=== PATIENT | male | born 1965 | race Caucasian/White ===

== ENCOUNTER 2021-07-13 11:40 | Emergency (ER) | payer OTHER ==
[2021-07-13 12:02] VITALS: BP 177/96; PULSE 75; TEMP 98.6; BMI 35.2
[2021-07-13] MEDS ORDERED: COLCHICINE 0.6 MG TAB PO ONE (12:09)
[2021-07-13] MEDS ORDERED: INDOMETHACIN 50 MG CAPSULE PO ONE (12:09)
[2021-07-13] MEDS ORDERED: predniSONE 20 MG TABLET (UD) ONE (12:12)
[2021-07-13] MEDS ORDERED: COLCHICINE 0.6 MG CAPSULE ONE (12:13)
[2021-07-13] MEDS ORDERED: INDOMETHACIN 25 MG CAPSULE ONE (12:13)
[2021-07-13] MEDS ORDERED: predniSONE 10 MG TABLET (UD) ONE (12:13)
[2021-07-13] MEDS ORDERED: predniSONE 20 MG TABLET (UD) PO ONE ×2 (12:59→13:05)
[2021-07-14] MEDS ORDERED: predniSONE 20 MG TABLET (UD) PO ONE (12:10)
== END 2021-07-13 13:07 | disposition home or self-care (01) ==
LOC: FER 11:40
DX: M79.671 Pain in right foot (principal); M10.9 Gout, unspecified
CPT/HCPCS: 73630-TC-RT-FY; 99284-25

== ENCOUNTER 2022-06-15 14:37 | Emergency (ER) | payer OTHER ==
[2022-06-15 14:42] VITALS: BP 164/77; PULSE 83; RESP 18; TEMP 98; BMI 36.6
[2022-06-15] MEDS ORDERED: CLINDAMYCIN HCL 150 MG CAPSULE (FP) PO ONE (15:39)
[2022-06-15] MEDS ORDERED: CLINDAMYCIN HCL 150 MG CAPSULE (FP) ONE (16:00)
== END 2022-06-15 16:51 | disposition home or self-care (01) ==
LOC: FER 14:37
DX: L03.032 Cellulitis of left toe (principal)
CPT/HCPCS: 99283-25

== ENCOUNTER 2022-06-18 11:09 | Inpatient (IN) | payer OTHER ==
[2022-06-18] MEDS ORDERED: CEFEPIME HCL/D5W 1 GM/50 ML BAG IVPB ONE (11:41)
[2022-06-18] MEDS ORDERED: VANCOMYCIN 1,000 MG in DEXTROSE 5%-WATER - 250 ML IVPB ONE (11:41)
[2022-06-18] MEDS ORDERED: VANCOMYCIN 1,000 MG VIAL (RESTRICTED TO ID ONLY) ONE ×2 (12:42→12:43)
[2022-06-18 13:26] LABS: ALBUMIN 4.1 g/dl (3.4-5.0); CALCIUM 9.7 mg/dl (8.5-10); CREATININE 0.7 mg/dl (0.55-1.3); TOT PROT 7.7 g/dl (6.4-8.2)
[2022-06-18 13:35] LABS: HEMATOCRIT 43.3 % (35.4-49); HEMOGLOBIN 14.7 G/dL (11.7-16.9); MCH 31.3 pg (25.7-33.7); MCHC 33.9 g/dl (32.0-35.9); MEAN CELL VOLUME 92.6 fl (80-96); MEAN PLT VOLUME 7.3 fl (7.5-11.1); PLATELET COUNT 247.3 10^3/uL (134-434); RBC 4.68 10^6/uL (4.00-5.60); WHITE BLOOD COUNT 11.1 10^3/uL (4.0-10.8)
[2022-06-18 14:24] LABS: ERYTHROCYTE SEDIMENTATION RATE 60 mm/hr (0-20)
[2022-06-18 15:08] LABS: PLATELET ESTIMATE ADEQUATE
[2022-06-18 16:11] VITALS: BMI 37.5
[2022-06-18 18:52] LABS: URIC ACID 4.9 mg/dL (2.6-7.2)
[2022-06-19] MEDS ORDERED: traMADol HCL 50 MG TABLET PO ONE (05:52)
[2022-06-19] MEDS ORDERED: ENOXAPARIN NA (PORCINE) 40 MG/0.4 ML DISP.SYRIN SQ SCH (10:00)
[2022-06-19] MEDS ORDERED: VALSARTAN 160 MG TABLET PO SCH (10:00)
[2022-06-19] MEDS ORDERED: VANCOMYCIN 1 GRAM (PRE-DOCKED) 1 GM/250 ML BAG IVPB SCH (11:00)
[2022-06-19] MEDS: oxyCODONE HCL 5 MG TABLET PO PRN ×2 (11:20→20:09)
[2022-06-19] MEDS: CEFEPIME 1 GM in DEXTROSE 5%-WATER 100 ML IVPB SCH ×2 (11:20→17:23)
[2022-06-19] MEDS: ACETAMINOPHEN 325 MG TABLET (FP) PO PRN (11:21)
[2022-06-19 12:33] LABS: ALBUMIN 3.8 g/dl (3.4-5.0); BILIRUBIN,TOTAL 1.1 mg/dl (0.2-1); CALCIUM 9.5 mg/dl (8.5-10); CREATININE 0.8 mg/dl (0.55-1.3); TOT PROT 7.3 g/dl (6.4-8.2)
[2022-06-19 14:46] LABS: BASO % 0.4 % (0-2.0); EOS % 1.8 % (0-4.5); HEMATOCRIT 39.5 % (35.4-49); HEMOGLOBIN 13.5 GM/dL (11.7-16.9); LYMPH % 8.9 % (8-40); MCH 31.6 pg (25.7-33.7); MCHC 34.1 g/dl (32.0-35.9); MEAN CELL VOLUME 92.7 fl (80-96); MEAN PLT VOLUME 7.6 fl (7.5-11.1); MONO % 8.7 % (3.8-10.2); NEUT % 80.2 % (42.8-82.8); PLATELET COUNT 301 10^3/uL (134-434); RBC 4.26 M/mm3 (4.00-5.60); RDW 13.3 % (11.9-15.9)
[2022-06-19] MEDS ORDERED: VANCOMYCIN/WATER FOR INJ (PEG) 1,000 MG/200 ML BAG IVPB SCH (23:00)
[2022-06-20] MEDS: CEFEPIME 1 GM in DEXTROSE 5%-WATER 100 ML IVPB SCH ×3 (02:12→17:34)
[2022-06-20] MEDS: ACETAMINOPHEN 325 MG TABLET (FP) PO PRN (05:07)
[2022-06-20] MEDS: VALSARTAN 160 MG TABLET PO SCH (09:09)
[2022-06-20] MEDS: ENOXAPARIN NA (PORCINE) 40 MG/0.4 ML DISP.SYRIN SQ SCH ×2 (09:10→09:17)
[2022-06-20] MEDS ORDERED: COLCHICINE 0.6 MG CAP PO ONE (09:35)
[2022-06-20] MEDS ORDERED: INDOMETHACIN 50 MG CAPSULE PO SCH (10:00)
[2022-06-20] MEDS: VANCOMYCIN/WATER 1,250 MG/250 ML BAG (RESTRICTED TO ID ONLY) IVPB SCH ×2 (10:02→22:03)
[2022-06-20] MEDS: PANTOPRAZOLE 40 MG TABLET PO SCH (10:02)
[2022-06-20] MEDS: predniSONE 20 MG TABLET (UD) PO SCH (11:18)
[2022-06-20 11:27] LABS: HEMATOCRIT 35.6 % (35.4-49); HEMOGLOBIN 12.5 GM/dL (11.7-16.9); MCH 31.8 pg (25.7-33.7); MCHC 35.2 g/dl (32.0-35.9); MEAN CELL VOLUME 90.2 fl (80-96); MEAN PLT VOLUME 6.8 fl (7.5-11.1); PLATELET COUNT 269 10^3/uL (134-434); RBC 3.94 M/mm3 (4.00-5.60); RDW 12.9 % (11.9-15.9)
[2022-06-20 11:28] LABS: BASO % 0.3 % (0-2.0); EOS % 0.9 % (0-4.5); LYMPH % 10.5 % (8-40); NEUT % 76.3 % (42.8-82.8)
[2022-06-20 11:34] LABS: CALCIUM 9.2 mg/dL (8.5-10.1)
[2022-06-20 11:35] LABS: ALBUMIN 3.2 g/dl (3.4-5.0); BLOOD UREA NITROGEN 15.7 mg/dL (7-18)
[2022-06-20 11:38] LABS: CREATININE 0.8 mg/dL (0.55-1.3)
[2022-06-20 11:39] LABS: BILIRUBIN,TOTAL 1.1 mg/dL (0.2-1)
[2022-06-20] MEDS: oxyCODONE HCL 5 MG TABLET PO PRN (17:37)
[2022-06-21] MEDS: CEFEPIME 1 GM in DEXTROSE 5%-WATER 100 ML IVPB SCH ×3 (02:24→17:34)
[2022-06-21 08:38] LABS: BASO % 0.7 % (0-2.0); EOS % 0.9 % (0-4.5); HEMOGLOBIN 12.7 GM/dL (11.7-16.9); MCH 31.6 pg (25.7-33.7); MCHC 35.3 g/dl (32.0-35.9); MEAN CELL VOLUME 89.7 fl (80-96); MEAN PLT VOLUME 6.9 fl (7.5-11.1); MONO % 9.3 % (3.8-10.2); NEUT % 77.1 % (42.8-82.8); PLATELET COUNT 321 10^3/uL (134-434); RBC 4.02 M/mm3 (4.00-5.60); RDW 13.1 % (11.9-15.9); WHITE BLOOD COUNT 12.4 K/mm3 (4.0-10.0)
[2022-06-21 09:01] LABS: CALCIUM 9.6 mg/dL (8.5-10.1)
[2022-06-21 09:02] LABS: BLOOD UREA NITROGEN 24.3 mg/dL (7-18)
[2022-06-21 09:05] LABS: CREATININE 0.7 mg/dL (0.55-1.3)
[2022-06-21] MEDS: VANCOMYCIN/WATER 1,250 MG/250 ML BAG (RESTRICTED TO ID ONLY) IVPB SCH ×2 (10:22→22:24)
[2022-06-21] MEDS: VALSARTAN 160 MG TABLET PO SCH (10:24)
[2022-06-21] MEDS: ENOXAPARIN NA (PORCINE) 40 MG/0.4 ML DISP.SYRIN SQ SCH ×2 (10:24→10:31)
[2022-06-21] MEDS: PANTOPRAZOLE 40 MG TABLET PO SCH (10:25)
[2022-06-21] MEDS: predniSONE 20 MG TABLET (UD) PO SCH (10:25)
[2022-06-21] MEDS: ACETAMINOPHEN 325 MG TABLET (FP) PO PRN (15:24)
[2022-06-21] MEDS: oxyCODONE HCL 5 MG TABLET PO PRN (15:24)
[2022-06-21] MEDS ORDERED: CEFEPIME HCL 1 GM VIAL (RESTRICTED TO ID) ONE (17:19)
[2022-06-22] MEDS: CEFEPIME 1 GM in DEXTROSE 5%-WATER 100 ML IVPB SCH ×3 (01:50→17:31)
[2022-06-22] MEDS: oxyCODONE HCL 5 MG TABLET PO PRN (07:55)
[2022-06-22] MEDS: ACETAMINOPHEN 325 MG TABLET (FP) PO PRN (07:56)
[2022-06-22] MEDS ORDERED: VANCOMYCIN HCL 1,500 MG in DEXTROSE 5%-WATER - 250 ML IVPB SCH (08:00)
[2022-06-22] MEDS: VANCOMYCIN PREMIX 1.5 GM 1,500 MG/300 ML BAG IVPB SCH ×2 (08:56→22:37)
[2022-06-22 09:19] LABS: BASO % 0.3 % (0-2.0); EOS % 0.6 % (0-4.5); HEMATOCRIT 35.4 % (35.4-49); HEMOGLOBIN 12.4 GM/dL (11.7-16.9); LYMPH % 12.3 % (8-40); MCH 31.7 pg (25.7-33.7); MCHC 35.2 g/dl (32.0-35.9); MEAN CELL VOLUME 90.1 fl (80-96); MONO % 9.1 % (3.8-10.2); NEUT % 77.7 % (42.8-82.8); PLATELET COUNT 346 10^3/uL (134-434); RBC 3.92 M/mm3 (4.00-5.60); RDW 13.3 % (11.9-15.9); WHITE BLOOD COUNT 12.2 K/mm3 (4.0-10.0)
[2022-06-22] MEDS: PANTOPRAZOLE 40 MG TABLET PO SCH (09:25)
[2022-06-22] MEDS: VALSARTAN 160 MG TABLET PO SCH (09:26)
[2022-06-22] MEDS: predniSONE 20 MG TABLET (UD) PO SCH (09:26)
[2022-06-22] MEDS: ENOXAPARIN NA (PORCINE) 40 MG/0.4 ML DISP.SYRIN SQ SCH (09:27)
[2022-06-22 09:52] LABS: BLOOD UREA NITROGEN 23.1 mg/dL (7-18); CALCIUM 9.4 mg/dL (8.5-10.1)
[2022-06-22 09:58] LABS: MAGNESIUM 2.4 mg/dL (1.8-2.4)
[2022-06-22 09:59] LABS: BILIRUBIN,TOTAL 0.6 mg/dL (0.2-1); CREATININE 0.8 mg/dL (0.55-1.3)
[2022-06-22] MEDS ORDERED: INSULIN (NOVOLOG) ASPART 100 UNITS/ML 10ML VIAL ONE (17:42)
[2022-06-23] MEDS: CEFEPIME 1 GM in DEXTROSE 5%-WATER 100 ML IVPB SCH (02:17)
[2022-06-23] MEDS: VANCOMYCIN PREMIX 1.5 GM 1,500 MG/300 ML BAG IVPB SCH (08:42)
[2022-06-23] MEDS: predniSONE 20 MG TABLET (UD) PO SCH (09:07)
[2022-06-23] MEDS: PANTOPRAZOLE 40 MG TABLET PO SCH (09:07)
[2022-06-23] MEDS: VALSARTAN 160 MG TABLET PO SCH (09:08)
[2022-06-23] MEDS: ENOXAPARIN NA (PORCINE) 40 MG/0.4 ML DISP.SYRIN SQ SCH (09:08)
[2022-06-23 11:05] LABS: BASO % 0.6 % (0-2.0); HEMATOCRIT 36.1 % (35.4-49); HEMOGLOBIN 12.7 GM/dL (11.7-16.9); MCH 31.8 pg (25.7-33.7); MCHC 35.2 g/dl (32.0-35.9); MEAN CELL VOLUME 90.4 fl (80-96); MEAN PLT VOLUME 6.8 fl (7.5-11.1); MONO % 3.9 % (3.8-10.2); NEUT % 81.5 % (42.8-82.8); PLATELET COUNT 387 10^3/uL (134-434); RDW 12.9 % (11.9-15.9); WHITE BLOOD COUNT 11.4 K/mm3 (4.0-10.0)
[2022-06-23] MEDS ORDERED: FUROSEMIDE 40 MG/4 ML INJECTABLE VIAL IVPUSH ONE (11:11)
[2022-06-23 11:34] LABS: CALCIUM 9.2 mg/dL (8.5-10.1)
[2022-06-23 11:35] LABS: BLOOD UREA NITROGEN 21.8 mg/dL (7-18); MAGNESIUM 2.4 mg/dL (1.8-2.4)
[2022-06-23 11:38] LABS: CREATININE 0.8 mg/dL (0.55-1.3); PHOSPHOROUS 3.2 mg/dL (2.5-4.9)
[2022-06-23 11:39] LABS: BILIRUBIN,TOTAL 0.6 mg/dL (0.2-1); TOT PROT 7.1 g/dl (6.4-8.2)
[2022-06-23] MEDS: KETOROLAC TROMETHAMINE 15 MG/ML VIAL IVPUSH SCH ×2 (12:16→17:19)
[2022-06-23] MEDS: CEPHALEXIN MONOHYDRATE 500 MG CAPSULE (UD) PO SCH ×2 (13:22→21:11)
[2022-06-24] MEDS: KETOROLAC TROMETHAMINE 15 MG/ML VIAL IVPUSH SCH ×2 (00:15→05:36)
[2022-06-24] MEDS: CEPHALEXIN MONOHYDRATE 500 MG CAPSULE (UD) PO SCH ×3 (05:37→21:15)
[2022-06-24 08:52] LABS: BASO % 0.6 % (0-2.0); HEMATOCRIT 38.1 % (35.4-49); HEMOGLOBIN 13.3 GM/dL (11.7-16.9); LYMPH % 16.2 % (8-40); MCH 31.5 pg (25.7-33.7); MEAN CELL VOLUME 89.9 fl (80-96); MEAN PLT VOLUME 6.8 fl (7.5-11.1); MONO % 6.7 % (3.8-10.2); NEUT % 75.5 % (42.8-82.8); PLATELET COUNT 413 10^3/uL (134-434); RBC 4.24 M/mm3 (4.00-5.60); RDW 13.3 % (11.9-15.9); WHITE BLOOD COUNT 12.4 K/mm3 (4.0-10.0)
[2022-06-24 09:04] LABS: ALBUMIN 3.1 g/dl (3.4-5.0); BLOOD UREA NITROGEN 29.4 mg/dL (7-18); CALCIUM 9.9 mg/dL (8.5-10.1)
[2022-06-24 09:05] LABS: MAGNESIUM 2.4 mg/dL (1.8-2.4)
[2022-06-24 09:07] LABS: CREATININE 0.8 mg/dL (0.55-1.3); PHOSPHOROUS 4.2 mg/dL (2.5-4.9)
[2022-06-24 09:09] LABS: TOT PROT 7.4 g/dl (6.4-8.2)
[2022-06-24 09:12] LABS: BILIRUBIN,TOTAL 0.6 mg/dL (0.2-1)
[2022-06-24 09:45] VITALS: RESP 18
[2022-06-24] MEDS: VALSARTAN 160 MG TABLET PO SCH (10:16)
[2022-06-24] MEDS: predniSONE 20 MG TABLET (UD) PO SCH (10:17)
[2022-06-24] MEDS: PANTOPRAZOLE 40 MG TABLET PO SCH (10:17)
[2022-06-24] MEDS: ENOXAPARIN NA (PORCINE) 40 MG/0.4 ML DISP.SYRIN SQ SCH (10:17)
[2022-06-24 16:08] LABS: PARV B19 IGG 4.6 index (0.0-0.8); PARV B19 IGM 0.2 index (0.0-0.8)
[2022-06-25] MEDS: CEPHALEXIN MONOHYDRATE 500 MG CAPSULE (UD) PO SCH (05:50)
[2022-06-25] MEDS: ENOXAPARIN NA (PORCINE) 40 MG/0.4 ML DISP.SYRIN SQ SCH (09:02)
[2022-06-25] MEDS: VALSARTAN 160 MG TABLET PO SCH (09:02)
[2022-06-25] MEDS: PANTOPRAZOLE 40 MG TABLET PO SCH (09:02)
[2022-06-25 14:28] VITALS: BP 148/86; PULSE 69; TEMP 98.4
== END 2022-06-25 15:04 | disposition home or self-care (01) | DRG 603 ==
LOC: FER 11:09 → FM/S 13:08 → J6S 06-19 21:40
PROVIDERS: ATTEND Internal Medicine
DX: L03.116 Cellulitis of left lower limb (principal); E78.5 Hyperlipidemia, unspecified; E66.8 Other obesity; Z68.37 Body mass index [BMI] 37.0-37.9, adult; G47.33 Obstructive sleep apnea (adult) (pediatric); I10 Essential (primary) hypertension; M10.9 Gout, unspecified; M25.569 Pain in unspecified knee; L08.9 Local infection of the skin and subcutaneous tissue, unspecified; D72.829 Elevated white blood cell count, unspecified
CPT/HCPCS: 0241U-QW; 36415; 73660-TC-LT-FY; 73718-TC-LT; 80048; 80053; 82962; 83036; 83735; 84100; 84550; 85025; 85027; 85651; 86140; 86747; 87040; 97116-GP; 97162-GP; 99285-25; G0480